=== PATIENT | female | born 1955 | race Caucasian/White ===

== ENCOUNTER → 2017-10-29 | Outpatient (CLI) | payer BC ==
--- NOTE | 2017-10-29 11:54 | RADIOLOGY REPORT PS360 ---
HIP LT 2-3V W/PELVIS IF PERFOR HISTORY: LT HIP PAIN ORDERING PHYSICIAN: Dona Vásquez MD PATIENT AGE: 62 years COMPARISON: None FINDINGS: There are mild osteoarthritic changes of both hips seen on the AP view of the pelvis with osteosclerosis of the acetabular roof and osteophyte formation of the acetabulum. No fracture or dislocation. No lytic or blastic change. IMPRESSION: Mild osteoarthritis of the hips with no acute finding
== END ==
LOC: RAD 11:01
DX: M25.552 Pain in left hip (principal)